=== PATIENT | female | born 1950 | race Caucasian/White ===

== ENCOUNTER 2020-05-21 22:30 | Outpatient (REF) | payer MEDICARE, SELFPAY ==
[2020-05-24 18:14] LABS: SARS-CoV-2 RNA Undetected (Undetected); SARS-CoV-2 Specimen Source Nasopharynx
== END 2020-05-21 22:50 ==
LOC: NCHCN 22:30
PROVIDERS: Visit Provider Nurse Practitioner Family
DX: Z11.59 Encounter for screening for other viral diseases (principal)
CPT/HCPCS: U0003

== ENCOUNTER 2020-10-14 09:49 | Outpatient (REF) | payer MEDICARE, SELFPAY ==
--- OUTSIDE RECORDS SUMMARY | 2020-10-14 09:56 | XMS_ITS ---
:1950 Author Organization [facility] Address [address] [place] [id number] Care Team Providers Name Role Phone ALLEGRA FREEMAN Unavailable Unavailable PROBLEMS Unknown Problems ALLERGIES No Known Allergies ENCOUNTERS Encounter Location Date Diagnosis [facility] [address] Jul, Strain of ri ght knee, [place], [place] [id number] initia l encounter [id number] [facility] Julia PROFESSIONAL Jun, [place], [place] [id number] IMMUNIZATIONS No Known Immunizations SOCIAL HISTORY Never Assessed REASON FOR REFERRAL FUNCTIONAL STATUS PLAN OF CARE VITAL SIGNS Height 62 in 2019-08-08 Weight 165 lbs 2019-08-08 BMI 30.18 2019-08-08 Heart Rate 72 /min 2019-08-08 Blood pressure systolic 140 mmHg 2019-08-08 Blood pressure diastolic 78 mmHg 2019-08-08 MEDICATIONS Medication Instructions Dosage Frequency Start End Date Duration Stat us Date Ambien 10 MG Orally Once a day 1 tablet at 24h Jun, Active bedtime as 2019 needed PROCEDURES No Known procedures RESULTS Name Result Date Reference Range Biopsy (Surgical Pathology) 2019-11-13 SURGICAL PATHOLOGY REASON FOR VISIT right leg pain, rx refill Insurance Providers [facility] Patient Patient Patient Patient Patient Subscriber Subscriber Subscriber Group Insurance Plan Plan Plan Plan ID Relationship Address Phone Name Date of ID Name Date of No Type Insurance Insurance Insurance Coverage to Subscriber Address Phone Name Dates Medicare [id number] Medicare self Lisa [id number] [facility] [address] [place] [address] [place] [id number]
[2020-10-14 14:03] LABS: ALT 20 U/L (14-59); AST 14 U/L (15-37); Albumin 3.8 g/dL (3.4-5.0); Alkaline Phosphatase 48 U/L (46-116); Anion Gap 7.1 mmol/L (3-11); BUN 18 mg/dL (7-18); Bilirubin, Total 0.5 mg/dL (0.2-1.0); CO2 26.9 mmol/L (21.0-32.0); CREATININE 0.73 mg/dL (0.55-1.02); Calcium 9.3 mg/dL (8.5-10.1); Calculated LDL 104 mg/dL (<100); Chloride 107 mmol/L (98-107); Cholesterol 192 mg/dL (<200); Glucose 76 mg/dL (74-106); HDL Cholesterol 70 mg/dL (40-60); Potassium 4.2 mmol/L (3.5-5.1); Sodium 141 mmol/L (136-145); Total Protein 6.4 g/dL (6.4-8.2); Triglyceride 93 mg/dL (<150)
== END 2020-10-14 10:09 ==
LOC: NCHCN 09:49
PROVIDERS: Visit Provider Nurse Practitioner Family
DX: E66.9 Obesity, unspecified (principal); R74.8 Abnormal levels of other serum enzymes
CPT/HCPCS: 80048; 80061; 80076

== ENCOUNTER 2020-12-09 15:16 | Outpatient (REF) | payer MEDICARE, SELFPAY ==
[2020-12-10 15:38] LABS: Chlamydia Result Negative (Negative); GC Result Negative (Negative)
== END 2020-12-09 15:17 | disposition home or self-care (01) ==
LOC: NCHCN 15:16
PROVIDERS: Visit Provider Nurse Practitioner Family
DX: Z11.3 Encounter for screening for infections with a predominantly sexual mode of transmission (principal)
CPT/HCPCS: 87491; 87591

== ENCOUNTER 2024-01-04 09:58 | Outpatient (REF) | payer MEDICARE, SELFPAY ==
[2024-01-04 16:26] LABS: Hemoglobin A1C 5.5 % (<5.7)
[2024-01-04 16:50] LABS: ALT 23 U/L (14-59); AST 17 U/L (15-37); Albumin 4.1 g/dL (3.4-5.0); Alkaline Phosphatase 62 U/L (46-116); Anion Gap 10.8 mmol/L (3-11); Bilirubin, Total 0.5 mg/dL (0.2-1.0); CO2 24.2 mmol/L (21.0-32.0); CREATININE 0.9 mg/dL (0.55-1.02); Calculated LDL 124 mg/dL (<100); Chloride 107 mmol/L (98-107); Cholesterol 221 mg/dL (<200); Estimated GFR 67.92 (mL/min/1.73m2); Glucose 95 mg/dL (74-106); HDL Cholesterol 65 mg/dL (40-60); Potassium 4.3 mmol/L (3.5-5.1); Sodium 142 mmol/L (136-145); Triglyceride 162 mg/dL (<150)
[2024-01-04 17:00] LABS: BUN 12 mg/dL (7-18); Calcium 9.3 mg/dL (8.5-10.1)
== END 2024-01-04 09:59 | disposition home or self-care (01) ==
LOC: NCHCN 09:58
PROVIDERS: PCP Nurse Practitioner Family; Visit Provider Nurse Practitioner Family
DX: E66.9 Obesity, unspecified (principal)
CPT/HCPCS: 80053; 80061; 83036